=== PATIENT | male | born 1980 | race Two or more races ===

== ENCOUNTER → 2024-12-04 10:57 | Outpatient (REF) | payer OTHER, SELFPAY | LOC: MRI 3T 10:57 | PROVIDERS: ATTENDING PHYSICIAN Orthopaedic Surgery | DX: S46.911A Strain of unspecified muscle, fascia and tendon at shoulder and upper arm level, right arm, initial encounter (principal) | CPT/HCPCS: 73221 ==

== ENCOUNTER 2024-12-09 21:10 | Emergency (ER) | payer OTHER, SELFPAY ==
[2024-12-09 21:12] VITALS: BP 144/83
[2024-12-09 21:15] VITALS: BMI 23.7
--- NOTE | 2024-12-09 21:52 | ED.GENMED ---
History of Present Illness
General
Chief Complaint: Post Operative Problem(s)
Source: patient
Exam Limitations: none
Time Seen by Provider: 12/09/24 21:29
History of Present Illness
History of Present Illness:
44-year-old male presents for evaluation. He had circumcision performed yesterday at [facility]. Today when he went to take a shower he took the bandage off and started bleeding. He got lightheaded and he panicked and called 911. By
time 911 got there they said to him that was not bleeding but I still recommended he go to the hospital. He denies any lightheadedness currently. He notes some soreness. No other complaints
Phy Exam
Physical Exam
Physical Exam:
General: Well appearing male nad
HEENT: NC/AT
: Circumcision incision appears well. There is mild swelling. There are black sutures noted around the wound. There is no active bleeding.
Course
Vital Signs
Initial and Last Documented VS:
Initial Vital Signs
Temp Pulse Resp BP Pulse Ox
98.3 F 65 18 144/83 99
12/09/24 21:12 12/09/24 21:12 12/09/24 21:12 12/09/24 21:12 12/09/24 21:12
Last Documented Vital Signs
Temp Pulse Resp BP Pulse Ox
98.3 F 65 18 144/83 97
12/09/24 21:12 12/09/24 21:12 12/09/24 21:12 12/09/24 21:12 12/09/24 21:16
MDM/Problems Addressed
Differential Diagnosis Includes:
Patient was bleeding from his circumcision incision however it is not currently bleeding. I redressed the area with antibacterial ointment Vaseline coated gauze and a gauze wrap. Wound care instructions were given. He was advised to follow-up
with his surgeon. Stable for discharge
*Pulse Oximetry
SaO2: 97
Oxygen Mode of Delivery: Room air
Patient hypoxic: no
*Critical Care Note
Total Time (30-74mins, 75-104mins- exclusive of procedures): Not Applicable
ED Attending Note
-
Portions of this chart may have been created with voice recognition software.� Occasional wrong word or��sound alike� substitutions may have occurred due to the inherent limitations of voice recognition software.
Discharge Plan
Departure
Patient Disposition: Home (Routine Discharge)
Date of Disposition: 12/09/24
Time of Disposition: 21:54
Patient with high blood pressure during this ER visit?: No
Discharge Problem:
Postoperative bleeding from incision
Instructions: Bleeding After Surgery
Activity Restrictions/Additional Instructions:
Keep current dressing on for 24 hours. You may have to moisten the dressing to remove it. Please call your surgeon to discuss further. Return if needed otherwise
Interventions
Interventions:
*Risk Screen - Suicide Last Done: 12/09/24 21:20
*General Assessment Last Done: 12/09/24 21:20
*Neglect/Abuse Screening Last Done: 12/09/24 21:20
*ED- Fall Risk Assessment Last Done: 12/09/24 21:20
*ED COVID-19 Vaccine History Last Done: 12/09/24 21:20
Discharge Date and Time
Print Language: TELUGU
== END 2024-12-09 22:10 | disposition home or self-care (01) ==
LOC: EMR 21:10
PROVIDERS: EMERGENCY PHYSICIAN Emergency Medicine; FAMILY PHYSICIAN Student in an Organized Health Care Education/Training Program
DX: L76.22 Postprocedural hemorrhage of skin and subcutaneous tissue following other procedure (principal)
CPT/HCPCS: 99282